=== PATIENT | male | born 1935 | race Caucasian/White ===

== ENCOUNTER 2018-04-05 00:40 | Emergency (ER) | payer MEDICARE, OTHER ==
[~2018-04-05] VITALS: Ht 162.6 cm; Wt 94.9 kg
[~2018-04-05 00:40] MED LIST: APR10 PO; FLA500 PO; FLO4 PO; LEVAQUIN750 MG PO; SYN75 PO; TRE400 PO; ZES20 PO; [UNRECOGNIZED DRUG - OTHER] PO; [UNRECOGNIZED DRUG - OTHER] PO
[2018-04-05 02:16] VITALS: BP 160/69
== END 2018-04-05 02:34 | disposition home or self-care (01) ==
LOC: ED 00:40
DX: M54.6 Pain in thoracic spine (principal); I10 Essential (primary) hypertension; E03.9 Hypothyroidism, unspecified; Z88.5 Allergy status to narcotic agent
CPT/HCPCS: 20552; J2001; J3301

== ENCOUNTER 2018-04-09 00:45 | Emergency (ER) | payer MEDICARE, OTHER ==
[~2018-04-09] VITALS: Ht 152.4 cm; Wt 96.2 kg
[2018-04-09 00:48] VITALS: Ht 152.4 cm; Wt 96.2 kg
[2018-04-09 02:31] VITALS: BP 172/84
== END 2018-04-09 02:31 | disposition home or self-care (01) ==
LOC: ED 00:45
DX: M25.511 Pain in right shoulder (principal); I10 Essential (primary) hypertension; E03.9 Hypothyroidism, unspecified; Z88.5 Allergy status to narcotic agent; Z86.39 Personal history of other endocrine, nutritional and metabolic disease
CPT/HCPCS: 72072

== ENCOUNTER 2018-04-11 02:35 | Emergency (ER) | payer MEDICARE, OTHER ==
[~2018-04-11] VITALS: Ht 162.6 cm; Wt 96.6 kg
[2018-04-11 02:43] VITALS: Ht 162.6 cm; Wt 96.6 kg
[2018-04-11 04:11] LABS: BASOPHIL % 0.6 % (0-2); CALCIUM 8.3 mg/dL (8.5-10.1); CARBON DIOXIDE 21.9 mmol/L (21-32); CHLORIDE SERUM 105 mmol/L (98-107); CREATININE SERUM 1.9 mg/dL (0.7-1.3); GLUCOSE SERUM 122 mg/dL (74-106); PLATELET COUNT 285 x10^3mcL (130-400); POTASSIUM SERUM 4.1 mmol/L (3.5-5.1); RED CELL DISTRIBUTION WIDTH 12.7 % (11.5-14.5); SODIUM SERUM 136 mmol/L (136-145)
[2018-04-11 04:16] LABS: ALKALINE PHOSPHATASE 70 U/L (46-116); ALT/SGPT 33 U/L (16-63); AST/SGOT 23 U/L (15-37); BILIRUBIN TOTAL 0.4 mg/dL (0.20-1.00); TOTAL PROTEIN, SERUM 7.3 g/dL (6.4-8.2)
[2018-04-11 05:44] VITALS: BP 161/93
== END 2018-04-11 05:44 | disposition home or self-care (01) ==
LOC: ED 02:35
PROVIDERS: Emergency Medicine
DX: M25.511 Pain in right shoulder (principal); M54.6 Pain in thoracic spine; I10 Essential (primary) hypertension; E03.9 Hypothyroidism, unspecified; Z88.6 Allergy status to analgesic agent; Z86.73 Personal history of transient ischemic attack (TIA), and cerebral infarction without residual deficits
CPT/HCPCS: 36415; 83880; Q0092

== ENCOUNTER 2020-08-30 14:46 | Emergency (ER) | payer MEDICARE, OTHER ==
[~2020-08-30] VITALS: Ht 162.6 cm; Wt 85.7 kg
[2020-08-30 15:01] VITALS: Ht 162.6 cm; Wt 85.7 kg
[2020-08-30 16:13] VITALS: BP 131/61
== END 2020-08-30 16:13 | disposition home or self-care (01) ==
LOC: ED 14:46
DX: B02.9 Zoster without complications (principal); I10 Essential (primary) hypertension; E03.9 Hypothyroidism, unspecified; Z88.5 Allergy status to narcotic agent; Z86.73 Personal history of transient ischemic attack (TIA), and cerebral infarction without residual deficits